=== PATIENT | female | born 2000 | race Caucasian/White ===

== ENCOUNTER → 2022-04-15 08:00 | Outpatient (BNVA) | payer BC, MEDICAID, SELFPAY | PROVIDERS: Visit Provider Clinical Nurse Specialist Adult Health | DX: J06.9 Acute upper respiratory infection, unspecified (principal) | CPT/HCPCS: 87804 ==

== ENCOUNTER → 2022-04-19 09:11 | Outpatient (BNVA) | payer BC, SELFPAY | PROVIDERS: Visit Provider Clinical Nurse Specialist Adult Health | DX: J06.9 Acute upper respiratory infection, unspecified (principal) | CPT/HCPCS: 87400; 87804 ==

== ENCOUNTER 2022-09-29 15:38 | Emergency (ER) | payer BC, MEDICAID, SELFPAY ==
[2022-09-29 15:46] VITALS: BP 150/91; PULSE 79; RESP 16; TEMP 36.6; O2SAT 96; BMI 42.0
--- NOTE | 2022-09-29 15:49 | USR_ITS ---
PROCEDURE INFORMATION: Exam: US Duplex Lower Extremity Veins, Bilateral Exam date and time: 09/29/2022 4:04 PM Age: 21 years old Clinical indication: Localized swelling, mass and lump, lower limb, bilateral; Pain; Leg, lower; Patient HX: PT gave 5 days ago, started noticing swelling yesterday; Additional info: Leg swelling, 5 days post surgery TECHNIQUE: Imaging protocol: Real-time Duplex ultrasound of the bilateral extremities with 2-D forrest scale, color Doppler flow and spectral waveform analysis with image documentation. Complete exam focused on the bilateral lower extremity veins. COMPARISON: No relevant prior studies available. FINDINGS: Right deep veins: Unremarkable. The common femoral, femoral, proximal profunda femoral and popliteal veins are patent without thrombus. Normal Doppler waveforms. Normal compressibility and/or augmentation response. Right superficial veins: Saphenofemoral junction is patent without thrombus. Left deep veins: The common femoral, femoral, proximal profunda femoral and popliteal veins are patent without thrombus. Normal Doppler waveforms. Normal compressibility and/or augmentation response. Left superficial veins: Saphenofemoral junction is patent without thrombus. Soft tissues: Unremarkable. US/[place] [id number] IMPRESSION: No evidence of deep vein thrombosis.
--- NOTE | 2022-09-29 15:59 | ED_ITS ---
HPI - General Adult General: Chief complaint: General Medical Stated complaint: UC sent for swelling in right leg post Csection Time Seen by Provider: 09/29/22 15:46 History of Present Illness: Patient is a 21-year-old female who comes to the ED with leg swelling. Patient was seen at urgent care earlier today and was told to come to the emergency department to rule out a DVT. Patient is 5 days post . She has had increased swelling in her legs bilaterally since surgery. She states that her right leg is more swollen than her left. She denies any leg pain or calf pain. Denies any history of blood clots, chest pain, hemoptysis or any shortness of breath. Associated symptoms: Deny chest pain, dyspnea, headache(s), nausea, rash, palpitations or vomiting Review of Systems Const: Denies: fever(s), chills or fatigue Eyes: Denies: change in vision or eye discomfort ENMT: Denies: throat pain, odynophagia, nasal discharge or nasal congestion Card: Denies: chest pain, palpitations, edema, swelling of feet/ankles, dyspnea on exertion or orthopnea Resp: Denies: dyspnea, productive cough or non-productive cough GI: Denies: abdominal pain, nausea, vomiting, diarrhea, constipation or hematochezia : Denies: flank pain, dysuria or hematuria Musc: Reports: extremity swelling (Bilateral lower extremity swelling); Denies: neck pain or back pain Skin/Breast: Denies: rash or new lesions Neuro: Denies: headache(s), numbness in extremities or weakness in extremities [facility] ED PFSH: Medical History No pertinent family history Surgical History History of Physical Exam Const: COMMON NORMALS: no acute distress, patient oriented x3 and alert GENERAL APPEARANCE: cooperative and comfortable HENMT: COMMON NORMALS: normocephalic HEAD & SCALP: normocephalic MOUTH: Normal oral and palatal mucosa present THROAT: posterior oropharynx normal and uvula midline Neck/C-Spine: COMMON NORMALS: supple GENERAL: Yes normal visual inspection Resp: COMMON NORMALS: normal respiratory effort, No retractions, No use of accessory muscles and clear to auscultation bilaterally AUSCULTATION: clear to auscultation bilaterally Cardio: COMMON NORMALS: regular rate, regular rhythm, S1 normal heart sound present, S2 normal heart sound present, No gallops present (Cardio), No clicks present (Cardio), No murmurs present (Cardio) and Peripheral pulses 2+ throughout RATE: regular rate RHYTHM: regular rhythm HEART SOUNDS: S1 normal heart sound present and S2 normal heart sound present PERIPHERAL PULSES: Peripheral pulses 2+ throughout GI: COMMON NORMALS: Normal to inspection, nondistended, normoactive bowel sounds present, Soft to palpation, non-tender and no masses PALPATION: Yes Soft to palpation : COMMON NORMALS: Yes no CVA tenderness BLADDER/KIDNEY EXAM: Yes no CVA tenderness Back/Pelvis: COMMON NORMALS: no CVA tenderness Extremity: COMMON NORMALS: no calf tenderness GENERAL: Yes edema (2+ edema to lower legs bilaterally) Neuro: COMMON NORMALS: patient oriented x3 SENSORIUM/ORIENTATION: Yes alert GAIT: Yes Normal gait present Skin: GENERAL SKIN EXAM: dry skin Course Vital Signs: Vital signs: Vital Signs Temperature 97.8 F 09/29/22 15:46 Pulse Rate 79 09/29/22 15:46 Respiratory Rate 16 09/29/22 15:46 Blood Pressure 150/91 09/29/22 15:46 Pulse Oximetry 96 09/29/22 15:46 Oxygen Delivery Me thod 09/29/22 15:46 [facility] - General Adult Medical Decision Making Patient is a 21-year-old female comes to the ED with bilateral lower extremity swelling. She was sent here to the ED for DVT rule out. She is 5 days post . Denies any calf pain, shortness of breath, chest pain or hemoptysis. Vitals are stable. Patient appears nontoxic in no acute distress or pain. No calf tenderness. She does have 2+ pitting edema to bilateral lower extremities. Ultrasound venous duplex of right and left lower extremity showed no DVTs or blood clots seen. Patient's leg swelling is likely post op and she was told to elevate legs and to use compression stockings or Robert wrap to help with swelling. Return to ED precautions given. Follow-up with PCP in the next week for reevaluation. Patient understood and agreed with plan. Lab Data Radiology Impressions Venous Duplex 09/29/22 15:49 IMPRESSION: No evidence of deep vein thrombosis. Discharge Plan Discharge Patient Disposition: Home Clinical Impression: Edema of both lower legs Condition: Stable Prescriptions: No Action valacyclovir 1 gram tablet 1,000 mg PO DAILY [id number] 3-fat com #1 [id number] mg capsule PO Discharge Orders: Discharge ED (Routine); Ordered 09/29/22 Ordered By: Michael Bateman Referrals: Michael Bolaños MD [Primary Care Provider] - Discharge Diet: Regular Discharge Activity: Increase activity as tolerated Patient Instructions: Leg Edema (ED) Activity Restrictions/Additional Instructions: Follow-up with medical provider as directed in the next 5 to 7 days for reevaluation. He can wrap legs with Robert wrap to help with swelling along with elevating them daily. Return to the ER or your medical provider if condition worsens. Please read and understand discharge instructions. Thank you for choosing [facility] for your healthcare needs today. Please realize this is an emergency room and that we are providing you with a medical screening exam and this may not be complete and all inclusive of all the testing and or work up that you may need to determine your ailment or severity of your illness. It is very important that you follow up as instructed or that you return to the Emergency Department should you have concerns or if your condition changes or worsens in any way. Coding Level of Care Code ED Civil Structural Engineer for Brittany Abel Exam Comprehensive
== END 2022-09-29 17:08 | disposition home or self-care (01) ==
PROVIDERS: Emergency Provider Physician Assistant; PCP Family Medicine
DX: R60.0 Localized edema (principal)
CPT/HCPCS: 93970; 99284

== ENCOUNTER 2024-02-16 09:58 | Outpatient (CLI) | payer BC, SELFPAY ==
--- NOTE | 2024-02-16 10:00 | CTR_ITS ---
PROCEDURE INFORMATION: Exam: CT Abdomen And Pelvis With Contrast Exam date and time: 02/16/2024 10:16 AM Age: 23 years old Clinical indication: Abdominal pain; Localized; Right lower quadrant (rlq); Prior surgery; Surgery date: 6+ months; Surgery type: Gb, x 2; Additional info: Rlq abd pain, pa auth number [id number] TECHNIQUE: Imaging protocol: Computed tomography of the abdomen and pelvis with contrast. Radiation optimization: All CT scans at this facility use at least one of these dose optimization techniques: automated exposure control; mA and/or kV adjustment per patient size (includes targeted exams where dose is matched to clinical indication); or iterative reconstruction. Contrast material: OMNI 350; Contrast volume: 100 ml; Contrast route: INTRAVENOUS (IV); COMPARISON: CR XR acute abdomen series [id number] 05/28/2019 3:51 PM RADIATION DOSE METRICS: Total DLP (mGy-cm): 823 FINDINGS: Liver: No acute findings Gallbladder and bile ducts: Cholecystectomy. Pancreas: No ductal dilation. Spleen: No splenomegaly. Adrenal glands: No mass. Kidneys and ureters: No stones or hydronephrosis. Stomach and bowel: No obstruction. Fluid-filled colon with borderline mild wall thickening/enhancement. No pericolonic stranding or collections. Appendix: Normal appendix. Intraperitoneal space: No free air. No significant fluid collection. Vasculature: No abdominal aortic aneurysm. Lymph nodes: No enlarged lymph nodes. Urinary bladder: Incompletely distended. Reproductive: No acute findings. Bones/joints: No acute findings. Soft tissues: No acute findings. CT/CT abdomen pelvis w con* [id number] IMPRESSION: Diarrheal illness/colitis. Normal appendix.
[2024-02-16] MEDS: iohexol 350 mg/mL 500 mL Btl (per mL) IV (10:20)
== END 2024-02-16 09:59 | disposition home or self-care (01) ==
LOC: RAD 09:58
PROVIDERS: PCP Family Medicine; Visit Provider Family Medicine
DX: R10.31 Right lower quadrant pain (principal); K52.9 Noninfective gastroenteritis and colitis, unspecified
CPT/HCPCS: 74177; 81000; 81025; 87045; 87177; 87209; 87427; 87449; Q9967

== ENCOUNTER → 2024-09-11 13:03 | Outpatient (BNVA) | payer BC, SELFPAY | PROVIDERS: PCP Family Medicine; Visit Provider Family Medicine | DX: Z34.90 Encounter for supervision of normal pregnancy, unspecified, unspecified trimester (principal); Z3A.00 Weeks of gestation of pregnancy not specified | CPT/HCPCS: 87624 ==

== ENCOUNTER → 2025-02-07 10:59 | Outpatient (BNVA) | payer BC, SELFPAY | PROVIDERS: PCP Family Medicine; Visit Provider Nurse Practitioner Family | DX: J02.9 Acute pharyngitis, unspecified (principal) | CPT/HCPCS: 87880 ==